=== PATIENT | male | born 1985 | race Two or more races ===

== ENCOUNTER 2025-05-23 14:47 | Emergency (ER) | payer BC ==
[~2025-05-23] VITALS: Ht 170.2 cm; Wt 101.6 kg
[2025-05-23 15:00] VITALS: BP 122/78; TEMP 98.4; O2SAT 97
[2025-05-23] MEDS ORDERED: CEPH-570 PO (15:10)
== END 2025-05-23 15:25 | disposition home or self-care (01) ==
LOC: ER 14:52
DX: L05.91 Pilonidal cyst without abscess (principal)